=== PATIENT | male | born 1990 | race Caucasian/White ===

== ENCOUNTER 2019-06-08 08:48 | Emergency (ER) | payer OTHER ==
[2019-06-08] MEDS ORDERED: LIDOCAINE 1% INJ-PF (10 MG/ML) 30 ML SDV INJ ONE (09:55)
--- NOTE | 2019-06-08 09:57 | ER Document Report ---
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 Last tetanus was within the past 2 years. He is able to move his thumb, but does have some pain associated. Denies KEARNEY, fever, neck pain, URI, CP, SOB, Abd pain, dysuria, back pain, or rash. I have treated and performed a rapid initial assessment of this patient. A comprehensive ED assessment and evaluation of the patient, analysis of test results and completion of medical decision making process will be conducted by additional ED providers. PHYSICAL EXAMINATION: GENERAL: Well-appearing, well-nourished and in no acute distress. A&Ox4. Answers questions appropriately. Lt thumb: there is a 7cm linear laceration noted, mostly appears superficial but some depth noted proximally. bleeding currently controlled. - Related Data Allergies/Adverse Reactions: No Known Allergies Allergy (Verified 06/08/19 08:51) Physical Exam - Vital signs Vitals: Temp Pulse Resp BP Pulse Ox 98.4 F 58 L 16 135/78 H 98 06/08/19 08:53 06/08/19 08:53 06/08/19 08:53 06/08/19 08:53 06/08/19 08:53 Course - Vital Signs Vital signs: Temp Pulse Resp BP Pulse Ox 98.4 F 58 L 16 135/78 H 98 06/08/19 08:53 06/08/19 08:53 06/08/19 08:53 06/08/19 08:53 06/08/19 08:53
--- NOTE | 2019-06-08 10:12 | ER Document Report ---
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 Patient reports tetanus immunization is currently up-to-date. Patient is right-hand dominant. Patient denies any difficulty with moving his left thumb. Associated Symptoms: Other - Left thumb laceration Exacerbated by: Movement Relieved by: Denies Similar symptoms previously: No Recently seen / treated by doctor: No - ROS ROS below otherwise negative: Yes Systems Reviewed and Negative: Yes All other systems reviewed and negative - NEURO Neurology: DENIES: Weakness - MUSCULOSKELETAL Musculoskeletal: REPORTS: Extremity pain - DERM Skin Color: Normal, [place] Skin Problems: Laceration Past Medical History - General Information source: Patient - Social History Smoking Status: Current Every Day Smoker Smoking Education Provided: Yes Frequency of alcohol use: None Drug Abuse: None 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 Lives with: Family Family History: Reviewed & Not Pertinent Patient has suicidal ideation: No Patient has homicidal ideation: No - Medical History Medical History: Negative Surgical Hx: Negative Vertical Provider Document - CONSTITUTIONAL Agree With Documented VS: Yes Exam Limitations: No Limitations General Appearance: WD/WN, No Apparent Distress - HEENT HEENT: Atraumatic, Normocephalic - NECK Neck: Normal Inspection - RESPIRATORY Respiratory: No Respiratory Distress - CARDIOVASCULAR Pulses: Normal: Radial - MUSCULOSKELETAL/EXTREMETIES Musculoskeletal/Extremeties: MAEW, FROM, Tender - Left thumb tenderness, No Edema - NEURO Level of Consciousness: Awake, Alert, Appropriate Motor/Sensory: No Motor Deficit - DERM Integumentary: Warm, Dry, Laceration - 7.5 cm laceration to radial aspect of left thumb, distal aspect of injury is more superficial Course - Vital Signs Vital signs: Temp Pulse Resp BP Pulse Ox 98.4 F 58 L 16 135/78 H 98 06/08/19 08:53 06/08/19 08:53 06/08/19 08:53 06/08/19 08:53 06/08/19 08:53 - Diagnostic Test Radiology reviewed: Image reviewed, Reports reviewed Procedures - Laceration/Wound Repair Left Hand Wound length (cm): 7.5 Wound's Depth, Shape: Linear Laceration pre-procedure: Shur-Clens applied Anesthetic type: 1% Lidocaine Wound explored: Clean Wound Repaired With: Sutures, Steri-strips, Dermabond Suture Size/Type: 4:0, Ethilon Number of Sutures: 12 Layer Closure?: No Post-procedure wound care: Sterile dressing applied Post-procedure NV exam normal: Yes Complications: No Notes: 06/08/19 11:50 Per patient's request superficial aspect of the laceration was closed with Dermabond and Steri-Strips. Hands front picture: 1 - 7.5 cm lac Discharge - Discharge Clinical Impression: Laceration of left hand Qualifiers: Encounter type: sequela Foreign body presence: without foreign body Qualified Code(s): S61.412S - Laceration without foreign body of left hand, sequela Condition: Stable Disposition: HOME, SELF-CARE Instructions: Laceration Care ([facility]), Skin Adhesive Closure ([facility]), Care of Steri-Strip Closure ([facility]) Additional Instructions: Return immediately for any new or worsening symptoms: Fever, redness, drainage, increased pain or any concerning symptoms Followup with your primary care provider, call tomorrow to make a followup appo intment Suture removal in 14 days Follow-up with hand specialist for any persistent problems Forms: Smoking Cessation Education, Return to Work Referrals: YOSI AYOUB DO [ACTIVE STAFF] - Follow up as needed
--- NOTE | 2019-06-08 11:05 | RADIOLOGY REPORT (SQ) ---
EXAM DESCRIPTION: HAND LEFT 2 VIEWS COMPLETED DATE/TIME: 06/08/2019 10:39 am REASON FOR STUDY: Left lateral thumb laceration 7cm COMPARISON: None. NUMBER OF VIEWS: Two views left hand and thumb. LIMITATIONS: None. FINDINGS: There is no acute or significant bone, joint or soft tissue abnormality. OTHER: No other significant finding. IMPRESSION: NORMAL STUDY. TECHNICAL DOCUMENTATION: JOB ID: [id number] Reading location - IP/workstation name: [email or web address]
[2019-06-08 12:20] VITALS: BP 126/69
== END 2019-06-08 12:20 | disposition home or self-care (01) ==
LOC: ER 08:48
DX: S61.412A Laceration without foreign body of left hand, initial encounter (principal); S61.012A Laceration without foreign body of left thumb without damage to nail, initial encounter; W26.8XXA Contact with other sharp object(s), not elsewhere classified, initial encounter; Y93.89 Activity, other specified; Y99.0 Civilian activity done for income or pay; F17.200 Nicotine dependence, unspecified, uncomplicated
CPT/HCPCS: 99282